=== PATIENT | male | born 1985 | race Two or more races ===

== ENCOUNTER 2018-06-29 09:01 | Emergency (ER) | payer SELFPAY ==
[~2018-06-29] VITALS: Ht 188 cm; Wt 118.0 kg
[2018-06-29 09:07] VITALS: BP 164/103
--- NOTE | 2018-06-29 09:30 | NUR ---
Assumed care of patient. C/O left sided dental pain. Patient reports taking 4 Aleve every 4 hours x 6-7 days. C/O upper ABD pain. Denies N/V or blood in stool. Will continue to monitor.
[2018-06-29] MEDS ORDERED: BENZONATATE 100 MG CAPSULE ONE (09:57)
[2018-06-29] MEDS ORDERED: MAALOX/HYOSCYAMINE/LIDOCAINE 45 ML BTL ONE (09:57)
[2018-06-29] MEDS ORDERED: BENZONATATE 100 MG CAPSULE PO ONE (10:00)
[2018-06-29] MEDS ORDERED: MAALOX/HYOSCYAMINE/LIDOCAINE 45 ML BTL PO ONE (10:00)
--- NOTE | 2018-06-29 10:06 | NUR ---
Patient/Caregiver given discharge instructions and they have confirmed that they understand the instructions. Patient ambulatory with steady gait.
== END 2018-06-29 10:07 | disposition home or self-care (01) ==
LOC: ED 10:00
DX: K21.0 Gastro-esophageal reflux disease with esophagitis (principal); K08.89 Other specified disorders of teeth and supporting structures; Z87.891 Personal history of nicotine dependence
CPT/HCPCS: 99283

== ENCOUNTER 2020-07-06 06:19 | Emergency (ER) | payer BC ==
[~2020-07-06] VITALS: Ht 185.4 cm; Wt 108.9 kg
--- NOTE | 2020-07-06 06:47 | NUR ---
patient placed in hospital gown. roller turner applied to patient. denies CP at this time. call romero in reach. safety maintained. will continue to monitor.
--- NOTE | 2020-07-06 06:50 | NUR ---
report given to Aj KELLY and Kolby RN
[2020-07-06] MEDS ORDERED: ONDANSETRON 2MG/ML, 2ML ONE (06:54)
[2020-07-06] MEDS ORDERED: FAMOTIDINE 20 MG/2 ML ONE (06:55)
[2020-07-06] MEDS ORDERED: SODIUM CHLORIDE 0.9% 1,000ML IVBOLUS ONE (07:00)
[2020-07-06] MEDS ORDERED: SODIUM CHLORIDE FLUSH 10ML SYR IVF ONE (07:00)
[2020-07-06] MEDS ORDERED: FAMOTIDINE 20 MG/2 ML IVPush ONE (07:00)
[2020-07-06] MEDS ORDERED: SODIUM CHLORIDE 0.9% 1,000 ML IV ONE (07:00)
[2020-07-06] MEDS ORDERED: ONDANSETRON 2MG/ML, 2ML IVPush ONE (07:00)
[2020-07-06 07:10] LABS: BASOPHILS % (AUTO) 1 % (0-1); EOSINOPHILS % (AUTO) 3 % (1-7); LYMPHOCYTES % (AUTO) 24 % (22-44); MEAN CORPUSCULAR HEMOGLOBIN 31.1 pg (27.5-34.5); MEAN CORPUSCULAR HGB CONC 33.9 g/dL (33.2-36.2); MEAN PLATELET VOLUME 8.3 fL (7.4-10.4); MONOCYTES % (AUTO) 10 % (2-9); NEUTROPHILS % (AUTO) 62 % (42-75); PLATELET COUNT 220 x10^3/uL (130-400); RED BLOOD COUNT 5.04 x10^6/uL (4.38-5.82); RED CELL DISTRIBUTION WIDTH 13.4 % (9.4-14.8)
--- NOTE | 2020-07-06 07:15 | NUR ---
REPORT FROM SHAYLA. PT CALMLY LAYING ON GURNEY. MEDICATED PER EMAR. CALL LIGHT WITHIN REACH. NO NEEDS AT THIS TIME.
[2020-07-06 07:16] LABS: ALANINE AMINOTRANSFERASE 47 U/L (12-78); ALBUMIN 4.2 g/dL (3.4-5.0); ANION GAP 8 mmol/L (5-15); CALCIUM 8.8 mg/dL (8.5-10.1); CHLORIDE 110 mmol/L (98-107); CREATININE 0.82 mg/dL (0.7-1.3)
[2020-07-06 07:18] LABS: ALKALINE PHOSPHATASE 60 U/L (45-117); BILIRUBIN,TOTAL 0.3 mg/dL (0.2-1.0); TOTAL PROTEIN 7.7 g/dL (6.4-8.2)
--- NOTE | 2020-07-06 08:13 | NUR ---
Patient given discharge instructions and they have confirmed that they understand the instructions. Patient ambulatory with steady gait.
[2020-07-06 08:15] VITALS: BP 134/71
[2020-07-06 08:21] LABS: MD NO
== END 2020-07-06 08:18 | disposition home or self-care (01) ==
LOC: ED 07:52
DX: R19.7 Diarrhea, unspecified (principal); R06.00 Dyspnea, unspecified; R07.89 Other chest pain; R00.0 Tachycardia, unspecified; R10.13 Epigastric pain; R06.02 Shortness of breath; K21.9 Gastro-esophageal reflux disease without esophagitis
CPT/HCPCS: 36415; 71045; 80053; 83690; 85025; 93005; 96361; 96374; 96375; 99285; J2405; J7030